=== PATIENT | female | born 1965 | race Asian ===

== ENCOUNTER 2018-07-11 15:42 | Emergency (ER) | payer SELFPAY ==
[~2018-07-11] VITALS: Ht 162.6 cm; Wt 109.0 kg
[~2018-07-11 15:42] MED LIST: ALBU0.63 NEB; ALBUTEROL; AMLO2.5T5 PO; FLUT10.6 INH; FLUT1DIS5 IH; LEVO750T26 PO; LISI-170 PO; LISI40TA PO; Lorazepam PO; METO25TA35 PO; NICO-485 TD; PARO20TA98 PO; PRED10TA14 PO
--- NOTE | 2018-07-11 15:49 | NUR ---
53 YR OLD FEMALE ARRIVED VIA EMS, PER REPORT PT IN STRESSFUL SITUATION, BP ELEVATED (225/135 PER EMS) HAS CABRERA. PT HAS BEEN OUT OF ANTIHYPERTENSIVE MEDS FOR APPROX 2 WEEKS.
[2018-07-11] MEDS ORDERED: METOCLOPRAMIDE 5 MG/ML, 2ML IVPush ONE (16:00)
[2018-07-11] MEDS ORDERED: DIPHENHYDRAMINE 50 MG/ML, 1ML IVPush ONE (16:00)
[2018-07-11] MEDS ORDERED: KETOROLAC 30 MG/1 ML IVPush ONE (16:00)
[2018-07-11] MEDS ORDERED: METOCLOPRAMIDE 5 MG/ML, 2ML ONE (16:09)
[2018-07-11] MEDS ORDERED: DIPHENHYDRAMINE 50 MG/ML, 1ML ONE (16:09)
[2018-07-11] MEDS ORDERED: KETOROLAC 30 MG/1 ML ONE (16:09)
[2018-07-11 16:24] LABS: ANION GAP 7 mmol/L (5-15); CALCIUM 9.2 mg/dL (8.5-10.1); CHLORIDE 111 mmol/L (98-107); CREATININE 0.79 mg/dL (0.55-1.02)
--- NOTE | 2018-07-11 17:23 | NUR ---
Patient given discharge instructions and they have confirmed that they understand the instructions. Patient ambulatory with steady gait. In police custody & infirmary paperwork & Rx/d/c papers to officer.
[2018-07-11 17:24] VITALS: BP 176/101
== END 2018-07-11 17:26 | disposition home or self-care (01) ==
LOC: ED 17:20
DX: I10 Essential (primary) hypertension (principal); R51 Headache; J45.909 Unspecified asthma, uncomplicated; F32.9 Major depressive disorder, single episode, unspecified; F17.200 Nicotine dependence, unspecified, uncomplicated; E66.9 Obesity, unspecified; Z90.710 Acquired absence of both cervix and uterus; Z68.41 Body mass index [BMI] 40.0-44.9, adult
CPT/HCPCS: 36415; 80048; 82040; 93005; 96374; 96375; 99284; J1200; J1885; J2765